=== PATIENT | male | born 1955 | race Caucasian/White ===

== ENCOUNTER 2017-07-04 03:54 | Emergency (ER) | payer OTHER ==
[2017-07-04 05:28] VITALS: BP 147/83
[2017-07-05] MEDS ORDERED: METFORMIN HCL850 MG PO (01:37)
[2017-07-05] MEDS ORDERED: ZESTRIL20 MG PO ×2 (01:38→01:39)
[2017-07-05] MEDS ORDERED: ACT30 PO (01:39)
[2017-07-05] MEDS ORDERED: CLARITIN10 MG PO ×2 (01:40→01:41)
[2017-07-05] MEDS ORDERED: NAPROXEN500 MG PO (01:42)
== END 2017-07-04 05:28 | disposition home or self-care (01) ==
LOC: ED 03:54 → EDBD 03:54 → ED 05:28
DX: J18.9 Pneumonia, unspecified organism (principal); E11.9 Type 2 diabetes mellitus without complications; I10 Essential (primary) hypertension; Z79.4 Long term (current) use of insulin; Z79.84 Long term (current) use of oral hypoglycemic drugs; Z79.899 Other long term (current) drug therapy
CPT/HCPCS: J0696; Q0092

== ENCOUNTER 2017-07-04 16:14 | Inpatient (IN) | payer OTHER ==
[~2017-07-04] VITALS: Ht 165.1 cm; Wt 80.9 kg
[2017-07-04 18:26] LABS: CALCIUM 8.8 mg/dL (8.5-10.1); CARBON DIOXIDE 28.6 mmol/L (21-32); CHLORIDE SERUM 102 mmol/L (98-107); CREATININE SERUM 0.9 mg/dL (0.7-1.3); GFR1 > 60 mL/min; GLUCOSE SERUM 186 mg/dL (74-106); SODIUM SERUM 138 mmol/L (136-145)
[2017-07-04 18:36] LABS: BASOPHIL % 0.5 % (0-2); PLATELET COUNT 265 x10^3mcL (130-400); RED CELL DISTRIBUTION WIDTH 14.4 % (11.5-14.5)
[2017-07-04 18:39] LABS: ALBUMIN 3.6 g/dL (3.4-5.0); ALKALINE PHOSPHATASE 80 U/L (46-116); ALT/SGPT 26 U/L (16-63); AST/SGOT 21 U/L (15-37); BILIRUBIN TOTAL 0.37 mg/dL (0.20-1.00); T4(THYROXINE) 8.5 ug/dL (4.7-13.3)
[2017-07-04 18:42] LABS: TOTAL PROTEIN, SERUM 8.3 g/dL (6.4-8.2)
[2017-07-04 21:27] LABS: microscopic required? NO
[2017-07-04 21:39] LABS: UA SPECIFIC GRAVITY <=1.005 (1.005-1.035); urine erythrocyte NEGATIVE (NEGATIVE)
[2017-07-04 21:42] VITALS: BP 154/83
[2017-07-04 21:44] VITALS: Ht 165.1 cm; Wt 80.9 kg
[2017-07-04 21:56] LABS: AMPHETAMINE QUAL UR NONE DETECTED (NEG <=1000)
[2017-07-04 22:41] LABS: CHOLESTEROL/HDL RATIO 4.3; MAGNESIUM 1.8 mg/dL (1.8-2.4); PHOSPHOROUS 3.3 mg/dL (2.5-4.9)
[2017-07-04 22:49] LABS: FREE T4 1.2 ng/dL (0.76-1.46); T4(THYROXINE) 8.4 ug/dL (4.7-13.3)
[2017-07-04 22:53] LABS: T3 TOTAL 1.1 ng/mL
[2017-07-05 01:13] VITALS: BP 154/83
[2017-07-05] MEDS ORDERED: METFORMIN HCL850 MG PO (01:37)
[2017-07-05] MEDS ORDERED: ZESTRIL20 MG PO ×2 (01:38→01:39)
[2017-07-05] MEDS ORDERED: ACT30 PO (01:39)
[2017-07-05] MEDS ORDERED: CLARITIN10 MG PO ×2 (01:40→01:41)
[2017-07-05] MEDS ORDERED: NAPROXEN500 MG PO (01:42)
[2017-07-05 05:40] VITALS: BP 143/75
[2017-07-05 06:30] LABS: BASOPHIL % 0.5 % (0-2); PLATELET COUNT 223 x10^3mcL (130-400)
[2017-07-05 06:37] LABS: RED CELL DISTRIBUTION WIDTH 14.7 % (11.5-14.5)
[2017-07-05 07:03] LABS: CARBON DIOXIDE 27 mmol/L (21-32); CHLORIDE SERUM 106 mmol/L (98-107); CREATININE SERUM 0.9 mg/dL (0.7-1.3); GFR1 > 60 mL/min; GLUCOSE SERUM 99 mg/dL (74-106); POTASSIUM SERUM 3.7 mmol/L (3.5-5.1); SODIUM SERUM 140 mmol/L (136-145)
[2017-07-05 09:28] VITALS: BP 153/81; BP 1536/81
[2017-07-05 14:06] VITALS: BP 154/85
[2017-07-05 18:28] VITALS: BP 152/80
[2017-07-05 21:01] VITALS: BP 128/78
[2017-07-06 06:02] VITALS: BP 148/76
[2017-07-06 07:26] LABS: CALCIUM 8.8 mg/dL (8.5-10.1); CARBON DIOXIDE 25.3 mmol/L (21-32); CHLORIDE SERUM 107 mmol/L (98-107); CREATININE SERUM 0.9 mg/dL (0.7-1.3); GFR1 > 60 mL/min; GLUCOSE SERUM 96 mg/dL (74-106); POTASSIUM SERUM 3.9 mmol/L (3.5-5.1); SODIUM SERUM 141 mmol/L (136-145)
[2017-07-06 07:58] LABS: BASOPHIL % 0.6 % (0-2); PLATELET COUNT 225 x10^3mcL (130-400)
[2017-07-06 07:59] LABS: RED CELL DISTRIBUTION WIDTH 14.8 % (11.5-14.5)
[2017-07-06 08:33] VITALS: BP 166/85
[2017-07-06 12:08] VITALS: BP 140/51
[2017-07-06 16:12] VITALS: BP 144/69
[2017-07-06 20:01] VITALS: BP 149/78
[2017-07-07 05:13] VITALS: BP 141/71
[2017-07-07 06:15] LABS: CALCIUM 8.5 mg/dL (8.5-10.1); CARBON DIOXIDE 25.3 mmol/L (21-32); CHLORIDE SERUM 107 mmol/L (98-107); CREATININE SERUM 0.9 mg/dL (0.7-1.3); GFR1 > 60 mL/min; GLUCOSE SERUM 132 mg/dL (74-106); POTASSIUM SERUM 3.9 mmol/L (3.5-5.1); SODIUM SERUM 141 mmol/L (136-145)
[2017-07-07 06:16] LABS: BASOPHIL % 0.5 % (0-2); PLATELET COUNT 218 x10^3mcL (130-400)
[2017-07-07 06:47] LABS: RED CELL DISTRIBUTION WIDTH 14.7 % (11.5-14.5)
[2017-07-07 08:00] VITALS: BP 168/79
[2017-07-07 12:08] VITALS: BP 160/72
[2017-07-07 16:23] VITALS: BP 166/85
[2017-07-07 20:25] VITALS: BP 166/83
[2017-07-07 22:30] VITALS: BP 132/65
[2017-07-08] VITALS (12 sets, daily range): BP systolic 122–156; BP diastolic 67–91
[2017-07-08 06:20] LABS: CALCIUM 8.5 mg/dL (8.5-10.1); CARBON DIOXIDE 25.1 mmol/L (21-32); CHLORIDE SERUM 105 mmol/L (98-107); CREATININE SERUM 0.9 mg/dL (0.7-1.3); GFR1 > 60 mL/min; GLUCOSE SERUM 171 mg/dL (74-106); POTASSIUM SERUM 3.8 mmol/L (3.5-5.1); SODIUM SERUM 138 mmol/L (136-145)
[2017-07-08 06:32] LABS: BASOPHIL % 0.4 % (0-2); PLATELET COUNT 217 x10^3mcL (130-400)
[2017-07-08 06:52] LABS: RED CELL DISTRIBUTION WIDTH 15.1 % (11.5-14.5)
[2017-07-09 05:34] VITALS: BP 141/72
[2017-07-09 08:00] VITALS: BP 165/85
[2017-07-09 12:36] VITALS: BP 167/98
[2017-07-09 16:28] VITALS: BP 138/67
[2017-07-09 20:50] VITALS: BP 139/81
[2017-07-10 04:37] LABS: BASOPHIL % 0.6 % (0-2); PLATELET COUNT 240 x10^3mcL (130-400); RED CELL DISTRIBUTION WIDTH 14.4 % (11.5-14.5)
[2017-07-10 05:29] VITALS: BP 111/73
[2017-07-10 10:18] VITALS: BP 148/83
[2017-07-10 17:16] VITALS: BP 129/70
[2017-07-10 21:41] VITALS: BP 144/83
[2017-07-11 06:18] VITALS: BP 144/84
[2017-07-11 07:15] LABS: BASOPHIL % 1.2 % (0-2); PLATELET COUNT 247 x10^3mcL (130-400)
[2017-07-11 07:49] LABS: CALCIUM 8.7 mg/dL (8.5-10.1); CARBON DIOXIDE 23.1 mmol/L (21-32); CHLORIDE SERUM 105 mmol/L (98-107); CREATININE SERUM 0.9 mg/dL (0.7-1.3); GFR1 > 60 mL/min; GLUCOSE SERUM 117 mg/dL (74-106); POTASSIUM SERUM 4.5 mmol/L (3.5-5.1); SODIUM SERUM 137 mmol/L (136-145)
[2017-07-11 08:55] VITALS: BP 149/88
[2017-07-11 09:15] VITALS: BP 149/88
[2017-07-11 13:10] VITALS: BP 140/80
[2017-07-11 16:42] VITALS: BP 136/78
[2017-07-11 21:38] VITALS: BP 157/89
[2017-07-12 05:50] VITALS: BP 145/80
[2017-07-12 06:42] LABS: RED CELL DISTRIBUTION WIDTH 14.5 % (11.5-14.5)
[2017-07-12 06:51] LABS: BASOPHIL % 0.5 % (0-2); PLATELET COUNT 241 x10^3mcL (130-400)
[2017-07-12 09:29] VITALS: BP 147/82
[2017-07-12 13:58] VITALS: BP 138/78
[2017-07-12 17:08] VITALS: BP 144/78
[2017-07-12 21:51] VITALS: BP 142/83
[2017-07-13] VITALS (9 sets, daily range): BP systolic 133–156; BP diastolic 74–86
[2017-07-13 06:58] LABS: ALKALINE PHOSPHATASE 55 U/L (46-116); ALT/SGPT 26 U/L (16-63); AST/SGOT 17 U/L (15-37); BILIRUBIN TOTAL 0.44 mg/dL (0.20-1.00); CALCIUM 8.7 mg/dL (8.5-10.1); CARBON DIOXIDE 23.5 mmol/L (21-32); CHLORIDE SERUM 106 mmol/L (98-107); CREATININE SERUM 0.9 mg/dL (0.7-1.3); GFR1 > 60 mL/min; GLUCOSE SERUM 127 mg/dL (74-106); POTASSIUM SERUM 4.2 mmol/L (3.5-5.1); SODIUM SERUM 138 mmol/L (136-145); TOTAL PROTEIN, SERUM 7.6 g/dL (6.4-8.2)
[2017-07-13 07:10] LABS: ALBUMIN 3.1 g/dL (3.4-5.0)
[2017-07-14 05:43] VITALS: BP 149/88
[2017-07-14 09:54] VITALS: BP 149/86
[2017-07-14 11:03] LABS: PLATELET COUNT 302 x10^3mcL (130-400); RED CELL DISTRIBUTION WIDTH 13.3 % (11.5-14.5)
[2017-07-14 11:07] LABS: BASOPHIL % 3.1 % (0-2)
[2017-07-14 12:19] LABS: CALCIUM 8.8 mg/dL (8.5-10.1); CARBON DIOXIDE 25.1 mmol/L (21-32); CHLORIDE SERUM 105 mmol/L (98-107); GFR1 > 60 mL/min; GLUCOSE SERUM 183 mg/dL (74-106); MAGNESIUM 1.9 mg/dL (1.8-2.4); PHOSPHOROUS 2.7 mg/dL (2.5-4.9); POTASSIUM SERUM 4.1 mmol/L (3.5-5.1); SODIUM SERUM 137 mmol/L (136-145)
[2017-07-14 18:01] VITALS: BP 131/69
[2017-07-14 21:30] VITALS: BP 154/84
[2017-07-15 05:44] VITALS: BP 135/82
[2017-07-15 06:27] LABS: CALCIUM 8.8 mg/dL (8.5-10.1); CARBON DIOXIDE 24.6 mmol/L (21-32); CHLORIDE SERUM 106 mmol/L (98-107); GFR1 > 60 mL/min; GLUCOSE SERUM 126 mg/dL (74-106); SODIUM SERUM 140 mmol/L (136-145)
[2017-07-15 06:29] LABS: BASOPHIL % 0.6 % (0-2); PLATELET COUNT 281 x10^3mcL (130-400)
[2017-07-15 06:47] LABS: RED CELL DISTRIBUTION WIDTH 14.7 % (11.5-14.5)
[2017-07-15 08:21] VITALS: BP 166/82
[2017-07-15] MEDS ORDERED: LIPI10 PO (14:28)
[2017-07-15] MEDS ORDERED: OSCD PO (14:31)
[2017-07-15] MEDS ORDERED: ECO81 PO (14:31)
[2017-07-15] MEDS ORDERED: LAC PO (14:32)
[2017-07-15] MEDS ORDERED: GLU5 PO (14:33)
[2017-07-15] MEDS ORDERED: TOPROL XL25 MG PO (14:34)
[2017-07-15] MEDS ORDERED: AUG500 PO (14:35)
[2017-07-15 15:22] VITALS: BP 139/88; BP 166/82
== END 2017-07-15 17:10 | disposition home or self-care (01) | DRG 194 ==
LOC: ED 16:14 → MU 20:41 → DU 20:41 → MU 07-09 12:45 → DU 07-10 14:59 → MU 07-12 15:46
PROVIDERS: Emergency Medicine; Family Medicine; Family Medicine Sports Medicine; ADMIT Student in an Organized Health Care Education/Training Program
PROC: 0BBC3ZX Excision of Right Upper Lung Lobe, Percutaneous Approach, Diagnostic (ICD-10-PCS; principal; 2017-07-08)
PROC: 0BBC3ZX Excision of Right Upper Lung Lobe, Percutaneous Approach, Diagnostic (ICD-10-PCS; 2017-07-13)
DX: J18.9 Pneumonia, unspecified organism (principal); D68.69 Other thrombophilia; E86.0 Dehydration; E11.65 Type 2 diabetes mellitus with hyperglycemia; E83.51 Hypocalcemia; I16.0 Hypertensive urgency; J44.9 Chronic obstructive pulmonary disease, unspecified; D64.9 Anemia, unspecified; E78.5 Hyperlipidemia, unspecified; Z68.25 Body mass index [BMI] 25.0-25.9, adult; Z79.84 Long term (current) use of oral hypoglycemic drugs
CPT/HCPCS: 32405; 83880; 84439; 86480; 86580; 87116; 87206; 90658; 90732; 94150; J0696; J1815; J1956; J2001; J2405; J2543; J3475; J3490; J7030; J7040; J7620; Q0092; Q9967

== ENCOUNTER 2018-10-31 09:15 | Emergency (ER) | payer OTHER ==
[~2018-10-31] VITALS: Ht 152.4 cm; Wt 73.5 kg
[~2018-10-31 09:15] MED LIST: ACT30 PO; AUG500 PO; CLARITIN10 MG PO; ECO81 PO; GLU5 PO; LAC PO; LIPI10 PO; METFORMIN HCL850 MG PO; NAPROXEN500 MG PO; OSCD PO; TOPROL XL25 MG PO; ZESTRIL20 MG PO
[2018-10-31 09:19] VITALS: BP 169/89; Ht 152.4 cm; Wt 73.5 kg
== END 2018-10-31 10:07 | disposition home or self-care (01) ==
LOC: ED 09:15
DX: J06.9 Acute upper respiratory infection, unspecified (principal); H66.91 Otitis media, unspecified, right ear; I10 Essential (primary) hypertension; E11.9 Type 2 diabetes mellitus without complications